=== PATIENT | male | born 1940 | race Caucasian/White ===

== ENCOUNTER 2021-08-23 15:24 | Inpatient (IN) | payer OTHER ==
[~2021-08-23 15:24] MED LIST: FOLIC AC PO; GLIPIZIDE XL10 MG PO; HYDROCHLOROTH12.5 MG PO; OMEGA PO; PEPCID AC20 MG PO; PLAVIX75 MG PO; SIMVASTA PO; TAMS0.4C PO; TOPROL XL25 M1 PO; ZESTRIL5 MG PO; ZYLOPRIM100 M1 PO; [UNRECOGNIZED DRUG - OTHER] PO
[2021-08-29] MEDS ORDERED: PERCOCET 5-3251 EACH PO (09:46)
[2021-08-29] MEDS ORDERED: INTEGRA PLUS C1 EACH PO (09:46)
[2021-08-29] MEDS ORDERED: CIPRO500 MG PO (09:46)
[2021-08-29] MEDS ORDERED: CEFADROXIL500 MG PO (09:46)
== END 2021-08-29 12:37 | disposition home or self-care (01) | DRG 483 ==
LOC: SURH 08-28 08:50 → O/R 08-28 12:30 → SURH 08-28 13:33
PROVIDERS: ADMIT Orthopaedic Surgery Sports Medicine; ATTEND Orthopaedic Surgery Sports Medicine
PROC: 0RRK0JZ Replacement of Left Shoulder Joint with Synthetic Substitute, Open Approach (ICD-10-PCS; principal; 2021-08-28 12:00)
DX: M84.412A Pathological fracture, left shoulder, initial encounter for fracture (principal)